=== PATIENT | male | born 1940 | race Caucasian/White ===

== ENCOUNTER 2020-08-04 13:23 | Emergency (ER) | payer MEDICARE, OTHER ==
[2020-08-04 15:37] LABS: BASOPHIL 0.2 % (0-2); EOSINOPHIL 1.6 % (0-7); HCT 40.3 % (42.0-52.0); HGB 13.6 g/dl (13.2-18.0); LYMPHOCYTE 18.9 % (15-48); MCH 31.2 pg (25.0-31.0); MCHC 33.7 g/dL (32.0-36.0); MCV 92.4 fL (78.0-100.0); MONOCYTE 16.8 % (0-12); MPV 10.3 fL (6.0-9.5); NEUTROPHIL 62.3 % (41-80); NRBC 0; PLT 116 K/uL (150-400); RBC 4.36 M/uL (4.70-6.00); RDW 13.2 % (11.5-14.0); WBC 8.5 K/uL (4.0-10.5)
[2020-08-04 16:04] LABS: BUN/CREAT RATIO (CALC) 14.8 RATIO; CREATININE 1.35 mg/dL (0.67-1.17); POTASSIUM 3.7 mmol/L (3.5-5.1)
[2020-08-04 16:34] LABS: BILIRUBIN NEGATIVE (NEGATIVE); BLOOD NEGATIVE Ery/uL (NEGATIVE); CLARITY CLEAR (CLEAR); COLOR YELLOW (YELLOW); GLUCOSE (U) NORMAL (NORMAL); LEUKOCYTES NEGATIVE Leu/uL (NEGATIVE); NITRITE NEGATIVE (NEGATIVE); PROTEIN NEGATIVE (NEGATIVE); SPECIFIC GRAVITY 1.015 (1.001-1.030); UROBILINOGEN 0.2 mg/dL (0.2-1.0)
== END 2020-08-04 19:05 | disposition home or self-care (01) ==
LOC: FER 13:23
PROVIDERS: Nurse Practitioner Family
DX: U07.1 COVID-19 (principal); I25.2 Old myocardial infarction; I48.91 Unspecified atrial fibrillation; E11.9 Type 2 diabetes mellitus without complications; Z95.0 Presence of cardiac pacemaker
CPT/HCPCS: 36415; 80048; 81003; 85025; J7030; J7050; M0239

== ENCOUNTER 2022-03-09 13:48 | Emergency (ER) | payer MEDICARE, OTHER ==
[2022-03-09 16:19] LABS: RBC 4.57 M/uL (4.70-6.00); WBC 12.1 K/uL (4.0-10.5)
[2022-03-09 16:20] LABS: HCT 41.5 % (42.0-52.0); HGB 13.9 g/dl (13.2-18.0); MCH 30.4 pg (25.0-31.0); MCHC 33.5 g/dL (32.0-36.0); MCV 90.8 fL (78.0-100.0); NEUTROPHIL 75.9 % (41-80); PLT 128 K/uL (150-400); RDW 14.1 % (11.5-14.0)
[2022-03-09 16:21] LABS: BASOPHIL 0.3 % (0-2); EOSINOPHIL 1.6 % (0-7); LYMPHOCYTE 10.8 % (15-48)
[2022-03-09 16:22] LABS: INR 1.08 (0.9-1.2); PROTHROMBIN TIME 13.7 SECONDS (11.9-13.9); PTT 30.7 SECONDS (24.9-34.6)
[2022-03-09 16:32] LABS: ALBUMIN 3.8 g/dL (3.4-5.0); BILIRUBIN - TOTAL 0.8 mg/dL (0.2-1.0); CREATININE 1.46 mg/dL (0.67-1.17); GLOBULIN (CALCULATION) 3.5 g/dL; POTASSIUM 3.5 mmol/L (3.5-5.1); TOTAL PROTEIN 7.3 g/dL (6.4-8.2)
== END 2022-03-09 17:11 | disposition home or self-care (01) ==
LOC: FER 13:48
PROVIDERS: Internal Medicine
DX: U07.1 COVID-19 (principal); E11.9 Type 2 diabetes mellitus without complications; I10 Essential (primary) hypertension; E03.9 Hypothyroidism, unspecified; Z87.891 Personal history of nicotine dependence; Z28.310 Unvaccinated for COVID-19
CPT/HCPCS: 36415; 71045; 80053; 83605; 83880; 84145; 84484; 85025; 85610; 85730; 93005; J1100; J7040